=== PATIENT | male | born 1955 | race Asian ===

== ENCOUNTER 2017-06-30 18:18 | Emergency (ER) | payer SELFPAY ==
--- NOTE | 2017-06-30 18:28 | NUR ---
PATIENT LEFT WITHOUT BEING SEEN BY DR. LINK. NO FURTHER CARE PROVIDED FOR PATIENT.
== END 2017-06-30 18:28 | disposition left against medical advice (07) ==
LOC: MED 18:18
DX: Z53.21 Procedure and treatment not carried out due to patient leaving prior to being seen by health care provider (principal)